=== PATIENT | male | born 1980 | race African-American/Black ===

== ENCOUNTER 2020-04-28 03:12 | Emergency (ER) | payer OTHER ==
[~2020-04-28] VITALS: Ht 193 cm; Wt 98.2 kg
[2020-04-28] MEDS ORDERED: IBUPROFEN 600MG TABLET PO STA (04:34)
[2020-04-28 05:00] LABS: BASOPHILS % 0.3 % (0.0-2.0); EOSINOPHILS % 0.2 % (0.0-5.0); HEMATOCRIT. 41.2 % (42.0-52.0); HEMOGLOBIN. 14.1 g/dL (14.0-18.0); LYMPHOCYTES % 21.6 % (20.0-50.0); MEAN CORPUSCULAR HEMOGLOBIN 32.2 pg (28.0-32.0); MONOCYTES % 3.9 % (2.0-8.0); PLATELET 174 x1000/uL (130-400); RED BLOOD CELL COUNT 4.38 mill/uL (4.7-6.1); RED CELL DISTRIBUTION WIDTH 13.5 % (11.6-14.6)
[2020-04-28 05:06] LABS: CHLORIDE 108 mEq/L (98-107)
[2020-04-28 06:30] VITALS: BP 115/68
== END 2020-04-28 07:01 | disposition home or self-care (01) ==
LOC: ER 03:12
DX: R07.89 Other chest pain (principal)
CPT/HCPCS: 36415; 71045; 80053; 84484; 85025; 93005; 99285